=== PATIENT | female | born 1960 | race Caucasian/White ===

== ENCOUNTER 2018-11-23 22:40 | Emergency (ER) | payer MEDICAID ==
[~2018-11-23] VITALS: Ht 162.6 cm; Wt 81.6 kg
[2018-11-23 22:53] VITALS: BP 140/84
[2018-11-24] MEDS ORDERED: BACLOFEN 10 MG TAB PO ONE (02:45)
[2018-11-24] MEDS ORDERED: methylPREDNISolone SOD SUCC 125 MG/2 ML VL IM ONE (02:45)
== END 2018-11-24 03:10 | disposition home or self-care (01) ==
LOC: ER 22:52
DX: H66.93 Otitis media, unspecified, bilateral (principal); F41.9 Anxiety disorder, unspecified; F17.210 Nicotine dependence, cigarettes, uncomplicated
CPT/HCPCS: 70450; 96372; 99284; J2930